=== PATIENT | male | born 1985 | race Caucasian/White ===

== ENCOUNTER 2018-09-19 12:58 | Emergency (ER) | payer OTHER ==
[~2018-09-19] VITALS: Ht 182.9 cm; Wt 68.0 kg
[~2018-09-19 12:58] MED LIST: AMOX500 PO
[2018-09-19] MEDS ORDERED: Amoxicillin500 MG PO (13:56)
[2018-09-19] MEDS ORDERED: Naprosyn500 MG PO (14:14)
== END 2018-09-19 13:30 | disposition home or self-care (01) ==
LOC: ER 12:58
DX: K04.7 Periapical abscess without sinus (principal); K02.9 Dental caries, unspecified; F17.200 Nicotine dependence, unspecified, uncomplicated
CPT/HCPCS: 41800; 99282-25